=== PATIENT | female | born 1990 | race African-American/Black ===

== ENCOUNTER 2018-10-16 14:26 | Outpatient (CLI) | payer MEDICAID ==
[2018-10-16 15:21] LABS: ABSOLUTE BASOPHILS # (AUTO) 0.1 10^3/uL (0.0-0.2); ABSOLUTE EOSINOPHILS # (AUTO) 0.1 10^3/uL (0.0-0.6); ABSOLUTE LYMPHOCYTES (AUTO) 1.7 10^3/uL (0.5-4.7); ABSOLUTE MONOCYTES (AUTO) 0.6 10^3/uL (0.1-1.4); ABSOLUTE NEUT (AUTO) 4.7 10^3/uL (1.7-8.2); HEMATOCRIT 35.5 % (36.0-47.0); HEMOGLOBIN 11.8 g/dL (12.0-15.5); LYMPHOCYTES % (AUTO) 23.5 % (13-45); MEAN CORPUSCULAR HEMOGLOBIN 28.1 pg (27.0-33.4); MEAN CORPUSCULAR HGB CONC 33.2 g/dL (32.0-36.0); MEAN CORPUSCULAR VOLUME 85 fl (80-97); MONOCYTES % (AUTO) 8.9 % (3-13); PLATELET COUNT 173 10^3/uL (150-450); RED BLOOD COUNT 4.18 10^6/uL (3.72-5.28); RED CELL DISTRIBUTION WIDTH 14.2 % (11.5-14.0); SEGMENTED NEUTROPHILS % (AUTO) 65.6 % (42-78); TOTAL CELLS COUNTED % (AUTO) 100 %; WHITE BLOOD COUNT 7.2 10^3/uL (4.0-10.5)
[2018-10-16 15:28] LABS: APPEARANCE,URINE SLIGHTLY-CLOUDY; BILIRUBIN,URINE NEGATIVE (NEGATIVE); COLOR,URINE YELLOW; GLUCOSE, URINE NEGATIVE (NEGATIVE); KETONES,URINE NEGATIVE (NEGATIVE); LEUKOCYTE ESTERASE,URINE NEGATIVE (NEGATIVE); NITRITE,URINE NEGATIVE (NEGATIVE); PROTEIN,URINE NEGATIVE (NEGATIVE); URINE SPECIFIC GRAVITY 1.019; UROBILINOGEN,URINE NEGATIVE mg/dL (<2.0)
[2018-10-16 15:41] LABS: ALANINE AMINOTRANSFERASE 21 U/L (9-52); ALBUMIN 3.5 g/dL (3.5-5.0); ALKALINE PHOSPHATASE 113 U/L (38-126); ANION GAP 8 (5-19); ASPARTATE AMINO TRANSFERASE 17 U/L (14-36); BILIRUBIN,DIRECT 0.1 mg/dL (0.0-0.4); BILIRUBIN,TOTAL 0.3 mg/dL (0.2-1.3); BLOOD UREA NITROGEN 13 mg/dL (7-20); CALCIUM 9.8 mg/dL (8.4-10.2); CARBON DIOXIDE 24 mmol/L (22-30); CHLORIDE 106 mmol/L (98-107); GLUCOSE 74 mg/dL (75-110); POTASSIUM 4.3 mmol/L (3.6-5.0); SODIUM 138.2 mmol/L (137-145); TOTAL PROTEIN 6.6 g/dL (6.3-8.2); URIC ACID 3.2 mg/dL (2.5-6.2)
[2018-10-16 15:48] LABS: UR PRO/CREAT RATIO RESULT 0.1 mg/mg (0.0-0.2); URINE CREATININE 92.5 mg/dL (16-327); URINE PROTEIN 13.2 mg/dL (<12)
[2018-10-16 15:56] LABS: URINE AMPHETAMINES SCREEN NEGATIVE; URINE BARBITURATES SCREEN NEGATIVE; URINE BENZODIAZEPINES SCREEN NEGATIVE; URINE COCAINE SCREEN NEGATIVE; URINE MARIJUANA (THC) SCREEN NEGATIVE; URINE METHADONE SCREEN NEGATIVE; URINE PHENCYCLIDINE SCREEN NEGATIVE
--- NOTE | 2018-10-16 19:24 | Non Stress Test Report ---
Non Stress Test Datetime Report Generated by CPN: 10/16/2018 19:23 DEMOGRAPHIC EGA NST: 36.5 INDICATION Indication for Study: Other Indication for Study (NST) Other: pre eclampsia MONITORING Monitor Explained: Monitor Explained; Test Explained; Patient Verbalized Understanding Time on Monitor: 10/16/2018 14:43 Time off Monitor: 10/16/2018 16:54 NST Duration: 131 NST INTERVENTIONS NST Interventions: None Physician Notified NST: Hailey Dunlap CNM BABY A: [id number] BABY A Movement : Present Contraction Frequency : 2-6 FHR Baseline : 135 Accelerations : 15X15 Decelerations : None Variability : Moderate 6-25bpm NST Review: Meets Criteria for Reactive NST NST Review and Verified By : Isabella Palacios Rn NST Results: Reactive NST REPORT Report Trigger: Send Report
== END 2018-10-16 17:00 | disposition home or self-care (01) ==
LOC: LC 14:26
PROVIDERS: ATTEND Midwife
PROC: 4A1HXCZ Monitoring of Products of Conception, Cardiac Rate, External Approach (ICD-10-PCS; principal; 2018-10-16)
DX: O14.93 Unspecified pre-eclampsia, third trimester (principal); Z3A.36 36 weeks gestation of pregnancy
CPT/HCPCS: 36415; 59025; 80053; 80307; 81001; 82570; 83615; 84156; 84550; 85025

== ENCOUNTER 2018-11-03 05:00 | Inpatient (IN) | payer MEDICAID ==
[2018-10-31 10:54] LABS: ABSOLUTE EOSINOPHILS # (AUTO) 0.1 10^3/uL (0.0-0.6); ABSOLUTE LYMPHOCYTES (AUTO) 1.4 10^3/uL (0.5-4.7); ABSOLUTE MONOCYTES (AUTO) 0.4 10^3/uL (0.1-1.4); ABSOLUTE NEUT (AUTO) 3.8 10^3/uL (1.7-8.2); BASOPHILS % (AUTO) 0.5 % (0-2); EOSINOPHILS % (AUTO) 1.6 % (0-6); HEMATOCRIT 36.9 % (36.0-47.0); HEMOGLOBIN 12.3 g/dL (12.0-15.5); LYMPHOCYTES % (AUTO) 23.5 % (13-45); MEAN CORPUSCULAR HEMOGLOBIN 28.9 pg (27.0-33.4); MEAN CORPUSCULAR HGB CONC 33.5 g/dL (32.0-36.0); MEAN CORPUSCULAR VOLUME 86 fl (80-97); MONOCYTES % (AUTO) 7.7 % (3-13); PLATELET COUNT 171 10^3/uL (150-450); RED BLOOD COUNT 4.28 10^6/uL (3.72-5.28); RED CELL DISTRIBUTION WIDTH 14.1 % (11.5-14.0); SEGMENTED NEUTROPHILS % (AUTO) 66.7 % (42-78); TOTAL CELLS COUNTED % (AUTO) 100 %; WHITE BLOOD COUNT 5.8 10^3/uL (4.0-10.5)
[2018-10-31 11:00] LABS: APPEARANCE,URINE SLIGHTLY-CLOUDY; BILIRUBIN,URINE NEGATIVE (NEGATIVE); COLOR,URINE YELLOW; GLUCOSE, URINE NEGATIVE (NEGATIVE); KETONES,URINE NEGATIVE (NEGATIVE); LEUKOCYTE ESTERASE,URINE NEGATIVE (NEGATIVE); NITRITE,URINE NEGATIVE (NEGATIVE); PROTEIN,URINE NEGATIVE (NEGATIVE); URINE SPECIFIC GRAVITY 1.023; UROBILINOGEN,URINE NEGATIVE mg/dL (<2.0)
[2018-10-31 11:18] LABS: URINE AMPHETAMINES SCREEN NEGATIVE; URINE BARBITURATES SCREEN NEGATIVE; URINE BENZODIAZEPINES SCREEN NEGATIVE; URINE COCAINE SCREEN NEGATIVE; URINE METHADONE SCREEN NEGATIVE; URINE PHENCYCLIDINE SCREEN NEGATIVE
[2018-10-31 11:37] LABS: URINE MARIJUANA (THC) SCREEN UNCONFIRMED POSITIVE
[2018-11-03] MEDS ORDERED: RINGERS SOLUTION,LACTATED 2,000 ML IV ONE (05:15)
[2018-11-03] MEDS ORDERED: CEFAZOLIN 2 GM/D5W RTU 2 GM/50 ML RTUPB IV ONE (05:15)
[2018-11-03] MEDS ORDERED: PROPOFOL INJ 200 MG/20 ML VIAL IV ONE (06:50)
[2018-11-03] MEDS ORDERED: OXYTOCIN 10 UNIT/ML VIAL ONE ×2 (06:50→06:55)
[2018-11-03] MEDS ORDERED: MIDAZOLAM 2 MG/2 ML INJ ONE (06:51)
[2018-11-03] MEDS ORDERED: LIDOCAINE 1% INJ-PF (10 MG/ML) 30 ML SDV ONE (06:51)
[2018-11-03] MEDS ORDERED: EPHEDRINE SULFATE INJ 50 MG/1 ML AMPULE ONE (06:51)
[2018-11-03] MEDS ORDERED: SENNOSIDES/DOCUSATE 8.6-50 MG 1 EACH TABLET ONE (06:51)
[2018-11-03] MEDS ORDERED: OXYTOCIN/NORMAL SALINE 20 UNIT/1,000 ML RTUINJ ONE (06:52)
[2018-11-03] MEDS ORDERED: FENTANYL CITRATE INJ/PF 100 MCG/2 ML AMPUL ONE ×2 (06:56→09:34)
[2018-11-03] MEDS ORDERED: RINGERS SOLUTION,LACTATED 1,000 ML IV PRN ×2 (07:00→08:44)
[2018-11-03] MEDS ORDERED: KETOROLAC TROMETHAMINE INJ/PF 30 MG/1 ML SDV ONE (07:02)
[2018-11-03] MEDS ORDERED: ACETAMINOPHEN 1,000 MG/100 ML RTUPB IV ONE (07:02)
[2018-11-03] MEDS ORDERED: ONDANSETRON HCL INJ/PF 4 MG/2 ML SDV ONE (07:03)
[2018-11-03 07:38] LABS: CHLAM PCR NOT DETECTED (NOT DETECT)
[2018-11-03] MEDS ORDERED: MORPHINE SULFATE 10 MG/ML INJ IV PRN ×2 (08:32→08:44)
[2018-11-03] MEDS ORDERED: ONDANSETRON HCL INJ/PF 4 MG/2 ML SDV IV PRN (08:32)
[2018-11-03] MEDS ORDERED: DIPHENHYDRAMINE HCL 50 MG/ML VIAL IV PRN (08:32)
[2018-11-03] MEDS ORDERED: MEPERIDINE HCL/PF INJ 25 MG/1 ML DISP.SYRIN IV PRN (08:32)
[2018-11-03] MEDS ORDERED: OXYCODONE-ACETAMINOPHEN 5-325 MG TABLET PO PRN ×3 (08:32→08:44)
[2018-11-03] MEDS ORDERED: PROMETHAZINE HCL INJ 25 MG/1 ML VIAL IV PRN ×3 (08:32→08:44)
[2018-11-03] MEDS ORDERED: OXYTOCIN/NORMAL SALINE 20 UNIT/1,000 ML RTUINJ IV PRN (08:44)
[2018-11-03] MEDS ORDERED: MEASLES,MUMPS&RUBELLA VACC/PF 0.5 ML VIAL SUBCUT PRN (08:44)
[2018-11-03] MEDS ORDERED: SIMETHICONE 80 MG TAB.CHEW PO PRN (08:44)
[2018-11-03] MEDS ORDERED: ACETAMINOPHEN 1,000 MG/100 ML RTUPB IV PRN (08:44)
[2018-11-03] MEDS ORDERED: ACETAMINOPHEN 325 MG TABLET PO PRN (08:44)
[2018-11-03] MEDS ORDERED: DIPH/PERTUSS(ACELL)/TETANUS VAC/PF 0.5 ML SYR (>=10YO) IM PRN (08:44)
[2018-11-03] MEDS: FENTANYL CITRATE INJ/PF 100 MCG/2 ML AMPUL IV PRN ×2 (09:36→09:47)
--- NOTE | 2018-11-03 10:23 | OPERATIVE REPORT E ---
Operative Report NAME: DAILY ZIEGLER : 1990 AGE: 28Y DATE OF SURGERY: 11/03/2018 ROOM: 216 PREOPERATIVE DIAGNOSES: 1. IUP at 39 weeks. 2. Previous x2, desires repeat. POSTOPERATIVE DIAGNOSES: 1. IUP at 39 weeks. 2. Previous x2, desires repeat. OPERATION: Low-transverse hysterotomy section. SURGEON: MICHELLE KAMARA M.D. CYBER WORKFORCE DEVELOPER AND MANAGER: Steph Escalante, 1st assistant to the director integrated pest management technician ANESTHESIA: FINDINGS: Male in cephalic presentation with Apgars of 9 and 9. Multiple adhesions of the bladder to the lower uterine segment and omental adhesions to the anterior aspect of the left uterine serosa. COMPLICATIONS: None. ESTIMATED BLOOD LOSS: 650 mL. SPECIMENS REMOVED: None. PROCEDURE IN DETAIL: The patient was taken to the operating room, prepared and draped in a normal sterile fashion in a supine position with a leftward tilt. A transverse skin incision was made with a scalpel following the patient's previous scar and then carried through to the underlying layer of fascia with the same scalpel. The fascia was excised and extended laterally with Paz. The fascia was then grasped with Kochshar on the superior aspect and dissected from the rectus muscles sharply with the Mayos, and this was repeated on the inferior aspect of the fascia as well. The rectus muscle and peritoneum were divided sharply using Bovie and hemostat as needed. The rectus muscle was then divided and that is when the bladder adhesions were noted. The bladder blade was inserted. The hysterotomy was nicked with a scalpel well away from the adhesions and extended laterally with surgeon finger fracture. The infant was then delivered atraumatically. The nose and mouth were suctioned with a suction bulb, the cord was clamped and cut, and the was handed off to the awaiting pediatricians. Cord blood was collected. Placenta was removed manually. The uterus was exteriorized and cleared of clots and debris. The hysterotomy was closed with 0 Monocryl in a running, locked fashion. A second layer of the same suture was used to imbricate to ensure hemostasis. The uterus was returned to the abdomen and a piece of INTERCEED was placed along the hysterotomy, which was noted to be hemostatic. The rectus muscle and peritoneum were reapproximated with a mattress stitch of 2-0 chromic. The fascia was closed with 0 Vicryl. The subcutaneous layer was closed with plain catgut, and the skin was closed with 4-0 Vicryl. The patient tolerated the procedure well. Sponge, lap, and needle counts were correct x2, and the patient was taken to recovery in stable condition. DICTATING PHYSICIAN: MICHELLE KAMARA M.D. [id number] PHY#: [id number] ID: [id number] JOB#: [id number] ACCT: [id number] cc:MICHELLE KAMARA M.D. >
[2018-11-03] MEDS: PRENATAL VITAMIN W DHA CAPSULE PO SCH (11:47)
[2018-11-03] MEDS: DOCUSATE SODIUM 100 MG CAPSULE PO SCH ×2 (11:47→17:16)
[2018-11-03] MEDS: IBUPROFEN 800 MG TABLET PO SCH ×2 (12:27→19:00)
[2018-11-03] MEDS: OXYCODONE-ACETAMINOPHEN 5-325 MG TABLET PO PRN ×2 (12:33→16:45)
[2018-11-03] MEDS: KETOROLAC TROMETHAMINE INJ/PF 30 MG/1 ML SDV IV SCH ×2 (17:15→22:45)
[2018-11-04] MEDS: OXYCODONE-ACETAMINOPHEN 5-325 MG TABLET PO PRN ×4 (01:30→19:33)
[2018-11-04] MEDS: IBUPROFEN 800 MG TABLET PO SCH ×4 (06:13→22:22)
[2018-11-04 07:50] LABS: MEAN CORPUSCULAR HEMOGLOBIN 28.4 pg (27.0-33.4); MEAN CORPUSCULAR HGB CONC 33.4 g/dL (32.0-36.0); MEAN CORPUSCULAR VOLUME 85 fl (80-97); PLATELET COUNT 157 10^3/uL (150-450); RED BLOOD COUNT 3.52 10^6/uL (3.72-5.28); RED CELL DISTRIBUTION WIDTH 13.9 % (11.5-14.0); WHITE BLOOD COUNT 6.4 10^3/uL (4.0-10.5)
[2018-11-04] MEDS: KETOROLAC TROMETHAMINE INJ/PF 30 MG/1 ML SDV IV SCH (08:46)
--- NOTE | 2018-11-04 10:53 | PDOC PROGRESS REPORT ---
Subjective-OB Progress Note for:: 11/04/18 Subjective: Doing well, OOB to nursery, eating well, voiding, passing gas Physical Exam (OB) Vital Signs: Temp Pulse Resp BP Pulse Ox 98.2 F 78 18 147/88 H 100 11/04/18 08:00 11/04/18 08:00 11/04/18 08:00 11/04/18 08:00 11/04/18 08:00 Intake & Output 11/03/18 11/04/18 11/05/18 06:59 06:59 06:59 Intake Total 4031 Output Total 2640 Balance 1391 Weight 69.4 kg - PIH/Pre-Eclampsia DTR's: 2 + Clonus: Negative Headache: Absent Epigastric Pain: No Visual Changes: No - Dressing Removed: No Incision: Dressing, Draining, Well Approximated Closure Type: Sutures - Lochia Lochia Amount: Small 10-25 ml Lochia Color: Rubra/Red - Abdomen Description: Tender, Soft Hernia Present: No Fundal Description: Firm, Midline Fundal Height: u/u - u/2 Objective-Diagnostic Laboratory: 11/04/18 07:28 11/04/18 07:28 WBC 6.4 RBC 3.52 L Hgb 10.0 L Hct 30.0 L MCV 85 MCH 28.4 MCHC 33.4 RDW 13.9 Plt Count 157 Assessment and Plan(PN) - Assessment and Plan (1) Status post repeat low transverse section Is this a current diagnosis for this admission?: Yes - Time Spent with Patient Time with patient: Less than 15 minutes Medications reviewed and adjusted accordingly: Yes - Disposition Anticipated Discharge: Home Within: within 24 hours
[2018-11-04] MEDS: DOCUSATE SODIUM 100 MG CAPSULE PO SCH ×2 (11:13→19:32)
[2018-11-04] MEDS: PRENATAL VITAMIN W DHA CAPSULE PO SCH (11:14)
[2018-11-05] MEDS: OXYCODONE-ACETAMINOPHEN 5-325 MG TABLET PO PRN ×3 (01:44→20:40)
[2018-11-05] MEDS: IBUPROFEN 800 MG TABLET PO SCH ×3 (06:03→23:44)
[2018-11-05] MEDS: PRENATAL VITAMIN W DHA CAPSULE PO SCH (10:07)
[2018-11-05] MEDS: DOCUSATE SODIUM 100 MG CAPSULE PO SCH ×2 (10:07→18:29)
--- NOTE | 2018-11-05 11:06 | PDOC PROGRESS REPORT ---
Subjective-OB Progress Note for:: 11/05/18 Subjective: reports bleeding slowing, pain controlled with current meds. denies needs, +passing gas Physical Exam (OB) Vital Signs: Temp Pulse Resp BP Pulse Ox 97.8 F 90 16 138/64 H 100 11/05/18 08:41 11/05/18 04:08 11/05/18 08:41 11/05/18 04:08 11/05/18 08:41 Intake & Output 11/04/18 11/05/18 11/06/18 06:59 06:59 06:59 Intake Total 4031 1080 Output Total 2640 Balance 1391 1080 - Dressing Removed: No Incision: Dressing Closure Type: Surgical Glue - Abdomen Description: Tender, Soft Hernia Present: No Fundal Description: Firm, Midline Fundal Height: u/u - u/2 - Abdominal Inspection: Normal Distension: No distension - Extremities Lower extremities: Jatin's sign - neg Calf: Normal, Nontender Objective-Diagnostic Laboratory: 11/04/18 07:28 Assessment and Plan(PN) - Assessment and Plan (1) Acute blood loss anemia Is this a current diagnosis for this admission?: Yes (2) Cannabis dependence with current use Is this a current diagnosis for this admission?: Yes (3) History of delivery Is this a current diagnosis for this admission?: Yes (4) Status post repeat low transverse section Is this a current diagnosis for this admission?: Yes - Time Spent with Patient Time with patient: Less than 15 minutes Medications reviewed and adjusted accordingly: Yes - Disposition Anticipated Discharge: Home Within: within 24 hours
--- NOTE | 2018-11-05 23:35 | PDOC DISCHARGE SUMMARY ---
Final Diagnosis Discharge Date: 11/05/18 - Final Diagnosis (1) Acute blood loss anemia Is this a current diagnosis for this admission?: Yes (2) Cannabis dependence with current use Is this a current diagnosis for this admission?: Yes (3) Gestational hypertension Is this a current diagnosis for this admission?: Yes (4) History of delivery Is this a current diagnosis for this admission?: Yes (5) Status post repeat low transverse section Is this a current diagnosis for this admission?: Yes Discharge Data - Discharge Medication Prescriptions: Oxycodone HCl/Acetaminophen [Percocet 5-325 mg Tablet] 2 tab PO Q4HP PRN 7 Days #28 tablet PRN Reason: Docusate Sodium [Colace 100 mg Capsule] 100 mg PO BID 30 Days #60 capsule Furosemide [Lasix 20 mg Tablet] 20 mg PO QAM 3 Days #3 tablet Ibuprofen [Motrin 800 mg Tablet] 800 mg PO Q8 30 Days #90 tablet Nifedipine [Procardia Xl 30 mg Tablet] 30 mg PO DAILY 30 Days #30 tab.er.24 Simethicone [Mylicon 80 mg Chewable Tablet] 80 mg PO QIDP PRN 10 Days #40 tab.chew PRN Reason: Home Medications: Pnv No.95/Ferrous Fum/Folic AC [ Caplet] 1 each PO DAILY 10/31/18 Acetaminophen [Tylenol 325 mg Tablet] 650 mg PO Q4HP PRN tablet 11/05/18 Docusate Sodium [Colace 100 mg Capsule] 100 mg PO BID 30 Days #60 capsule 11/05/18 Furosemide [Lasix 20 mg Tablet] 20 mg PO QAM 3 Days #3 tablet 11/05/18 Ibuprofen [Motrin 800 mg Tablet] 800 mg PO Q8 30 Days #90 tablet 11/05/18 Nifedipine [Procardia Xl 30 mg Tablet] 30 mg PO DAILY 30 Days #30 tab.er.24 11/05/18 Oxycodone HCl/Acetaminophen [Percocet 5-325 mg Tablet] 2 tab PO Q4HP PRN 7 Days #28 tablet 11/05/18 Simethicone [Mylicon 80 mg Chewable Tablet] 80 mg PO QIDP PRN 10 Days #40 tab.chew 11/05/18 Gestational Age: 39 Reason(s) for Admission: Ceasarean Section-Repeat Admission Note: 28yo at 39+0 presents for scheduled Repeat section. She declines BTL. She of note reports HTN during each and . She denies history of PreE and prior 24 hr UTP during this was normal. She is not currently on any blood pressure medications. Procedures: NST, Management of Medical Complications Intrapartum Procedure(s): : Low Cervical, Transverse Intrapartum Procedure Note: see operative note Complication(s): Other - gestational Hypertension Complication(s) Note: Gestational hypertension. Will start lasix and Procardia. Patients baby is being transported to [facility] and patient strongly desires discharge. Patient to follow up in the office on Saturday. - Diagnosis Test Laboratory: Temp Pulse Resp BP Pulse Ox 98.4 F 85 14 152/92 H 100 11/05/18 20:46 11/05/18 20:46 11/05/18 20:46 11/05/18 20:46 11/05/18 20:46 10/31/18 10/31/18 11/04/18 10:18 10:18 07:28 RBC 4.28 3.52 L Hgb 12.3 10.0 L Hct 36.9 30.0 L Urine Opiates Screen NEGATIVE - Discharge information/Instructions Discharge Activity: Activity As Tolerated Discharge Diet: As Tolerated Disposition: HOME, SELF-CARE Follow up with: [facility] in: 2, Days
[2018-11-06] MEDS ORDERED: NIFEDIPINE 30 MG TAB.ER.24 PO ONE (02:30)
[2018-11-06] MEDS: IBUPROFEN 800 MG TABLET PO SCH (05:05)
[2018-11-06] MEDS: OXYCODONE-ACETAMINOPHEN 5-325 MG TABLET PO PRN (06:47)
[2018-11-06] MEDS: PRENATAL VITAMIN W DHA CAPSULE PO SCH (09:29)
[2018-11-06] MEDS: DOCUSATE SODIUM 100 MG CAPSULE PO SCH (09:29)
[2018-11-06] MEDS ORDERED: FUROSEMIDE 20 MG TABLET PO SCH (10:00)
[2018-11-06] MEDS ORDERED: NIFEDIPINE 30 MG TAB.ER.24 PO SCH (10:00)
--- NOTE | 2018-11-06 10:11 | PDOC PROGRESS REPORT ---
Subjective-OB Progress Note for:: 11/06/18 Subjective: pt sitting on side of bed pumping breasts, wants to be d/c so she can go to [facility] and check on her baby, she will come back to office in am if needed, she thinks her BP is elevated cause she needs fresh air and is stressed. If she can get out of here she will settle down and BP will get better Eating well, voiding, passing gas, pain under control, Physical Exam (OB) Vital Signs: Temp Pulse Resp BP Pulse Ox 98.0 F 112 H 18 158/99 H 99 11/06/18 09:20 11/06/18 09:20 11/06/18 09:20 11/06/18 09:20 11/06/18 09:20 Intake & Output 11/05/18 11/06/18 11/07/18 06:59 06:59 06:59 Intake Total 1080 925 Balance 1080 925 - PIH/Pre-Eclampsia DTR's: 2 + Clonus: Negative Headache: Absent Epigastric Pain: No Visual Changes: No - Dressing Removed: No Incision: Dressing Closure Type: Surgical Glue - Lochia Lochia Amount: Scant < 10 ml Lochia Color: Rubra/Red - Abdomen Description: Tender, Soft Hernia Present: No Fundal Description: Firm, Midline Fundal Height: u/u - u/2 Objective-Diagnostic Laboratory: 11/04/18 07:28 Assessment and Plan(PN) - Assessment and Plan (1) Status post repeat low transverse section Is this a current diagnosis for this admission?: Yes - Time Spent with Patient Time with patient: Less than 15 minutes Medications reviewed and adjusted accordingly: Yes - Disposition Anticipated Discharge: Home Within: within 24 hours
--- NOTE | 2018-11-06 10:16 | PDOC DISCHARGE SUMMARY ---
Final Diagnosis Discharge Date: 11/06/18 - Final Diagnosis (1) Status post repeat low transverse section Is this a current diagnosis for this admission?: Yes Discharge Data - Discharge Medication Prescriptions: Oxycodone HCl/Acetaminophen [Percocet 5-325 mg Tablet] 2 tab PO Q4HP PRN 7 Days #28 tablet PRN Reason: Docusate Sodium [Colace 100 mg Capsule] 100 mg PO BID 30 Days #60 capsule Furosemide [Lasix 20 mg Tablet] 20 mg PO QAM 3 Days #3 tablet Ibuprofen [Motrin 800 mg Tablet] 800 mg PO Q8 30 Days #90 tablet Nifedipine [Procardia Xl 30 mg Tablet] 30 mg PO DAILY 30 Days #30 tab.er.24 Simethicone [Mylicon 80 mg Chewable Tablet] 80 mg PO QIDP PRN 10 Days #40 tab.chew PRN Reason: Home Medications: Pnv No.95/Ferrous Fum/Folic AC [ Caplet] 1 each PO DAILY 10/31/18 Acetaminophen [Tylenol 325 mg Tablet] 650 mg PO Q4HP PRN tablet 11/05/18 Docusate Sodium [Colace 100 mg Capsule] 100 mg PO BID 30 Days #60 capsule 11/05/18 Furosemide [Lasix 20 mg Tablet] 20 mg PO QAM 3 Days #3 tablet 11/05/18 Ibuprofen [Motrin 800 mg Tablet] 800 mg PO Q8 30 Days #90 tablet 11/05/18 Nifedipine [Procardia Xl 30 mg Tablet] 30 mg PO DAILY 30 Days #30 tab.er.24 11/05/18 Oxycodone HCl/Acetaminophen [Percocet 5-325 mg Tablet] 2 tab PO Q4HP PRN 7 Days #28 tablet 11/05/18 Simethicone [Mylicon 80 mg Chewable Tablet] 80 mg PO QIDP PRN 10 Days #40 tab.chew 11/05/18 Reason(s) for Admission: Ceasarean Section-Repeat Procedures: NST, Ultrasound Intrapartum Procedure(s): : Low Cervical, Transverse - Diagnosis Test Laboratory: Temp Pulse Resp BP Pulse Ox 98.0 F 112 H 18 158/99 H 99 11/06/18 09:20 11/06/18 09:20 11/06/18 09:20 11/06/18 09:20 11/06/18 09:20 10/31/18 10/31/18 11/04/18 10:18 10:18 07:28 RBC 4.28 3.52 L Hgb 12.3 10.0 L Hct 36.9 30.0 L Urine Opiates Screen NEGATIVE - Discharge information/Instructions Discharge Activity: Activity As Tolerated, No Lifting Over 10 Pounds, Pelvic Rest, No tub bath Discharge Diet: As Tolerated, Regular Disposition: HOME, SELF-CARE Follow up with: [facility] in: 1, 2, Days - pt willbe d/c today once BP is down, 158/99, pt crying cause baby is getting a PICC line, talking to Dr.at [facility] in NICU if d/c today will be seen in office in am
--- NOTE | 2018-11-06 11:00 | PDOC PROGRESS REPORT ---
Subjective-OB Progress Note for:: 11/06/18 Physical Exam (OB) Vital Signs: Temp Pulse Resp BP Pulse Ox 98.0 F 112 H 18 158/99 H 99 11/06/18 09:20 11/06/18 09:20 11/06/18 09:20 11/06/18 09:20 11/06/18 09:20 Intake & Output 11/05/18 11/06/18 11/07/18 06:59 06:59 06:59 Intake Total 1080 925 Balance 1080 925 - PIH/Pre-Eclampsia DTR's: 2 + Clonus: Negative Headache: Absent Epigastric Pain: No Visual Changes: No - Dressing Removed: No Incision: Dressing Closure Type: Surgical Glue - Lochia Lochia Amount: Scant < 10 ml Lochia Color: Rubra/Red - Abdomen Description: Tender, Soft Hernia Present: No Fundal Description: Firm, Midline Fundal Height: u/u - u/2 Objective-Diagnostic Laboratory: 11/04/18 07:28 Assessment and Plan(PN) - Assessment and Plan (1) Status post repeat low transverse section Is this a current diagnosis for this admission?: Yes - Time Spent with Patient Time with patient: Less than 15 minutes Medications reviewed and adjusted accordingly: Yes - Disposition Anticipated Discharge: Home Within: within 24 hours - q time to go to check BP she is crying and emotional, and BP is elevated, wants to leave, left floor to go outside for some fresh air
[2018-11-06 12:01] VITALS: BP 142/85
== END 2018-11-06 12:16 | disposition home or self-care (01) | DRG 787 ==
LOC: 2S 05:00
PROVIDERS: ADMIT Obstetrics & Gynecology; ATTEND Obstetrics & Gynecology
PROC: 10D00Z1 Extraction of Products of Conception, Low, Open Approach (ICD-10-PCS; principal; 2018-11-03 07:45)
DX: O34.211 Maternal care for low transverse scar from previous cesarean delivery (principal); O99.324 Drug use complicating childbirth; D62 Acute posthemorrhagic anemia; O13.4 Gestational [pregnancy-induced] hypertension without significant proteinuria, complicating childbirth; N85.8 Other specified noninflammatory disorders of uterus; O99.02 Anemia complicating childbirth; F12.20 Cannabis dependence, uncomplicated; Z3A.39 39 weeks gestation of pregnancy; Z37.0 Single live birth
CPT/HCPCS: 1961; 36415; 80307; 81001; 85025; 85027; 86850; 86900; 86901; 87491; 87591; 94799; C1765; J0131; J1885; J2250; J2270; J2405; J2590; J2704; J3010; J3490; J7120